=== PATIENT | female | born 1995 | race Caucasian/White ===

== ENCOUNTER 2022-12-28 22:17 | Emergency (ER) | payer MEDICAID, OTHER ==
[~2022-12-28] VITALS: Ht 160 cm; Wt 59.0 kg
[2022-12-28 22:27] VITALS: O2SAT 98
[2022-12-28] MEDS ORDERED: ONDANSETRON HCL 4MG/2ML INJ IV STA (22:55)
[2022-12-28] MEDS ORDERED: MORPHINE SULFATE 4 MG/ML CPJ (NOT FOR IM USE) IV STA (22:55)
[2022-12-28] MEDS ORDERED: BACITRACIN ZINC OINT UDPKT TOP ONE (23:00)
[2022-12-28] MEDS ORDERED: SODIUM CHLORIDE 0.9% 1,000 ML IV ONE (23:00)
[2022-12-28] MEDS ORDERED: CEFAZOLIN 1000MG PREMIX 50 ML IV ONE (23:00)
[2022-12-28] MEDS ORDERED: TETANUS, DIPHTHERIA, PERTUSSIS VAC/PF 0.5ML (>10YR OLD) IM ONE (23:00)
[2022-12-28 23:33] LABS: ALANINE AMINOTRANSFERASE 35 IU/L (10-49); ALBUMIN 4.2 g/dL (3.2-4.8); ASPARTATE AMINOTRANSFERASE 41 IU/L (<34); BILIRUBIN TOTAL 0.4 mg/dL (0.1-1.0); CALCIUM 9.1 mg/dL (8.7-10.4); CARBON DIOXIDE 26 mEq/L (21-32); CHLORIDE 106 mEq/L (98-107); CREATININE 0.8 mg/dL (0.6-1.0); GLUCOSE 99 mg/dL (70-105); POTASSIUM 3.5 mEq/L (3.5-5.1); PROTEIN TOTAL 6.7 g/dL (6.0-8.3); SODIUM 139 mEq/L (136-145); UREA NITROGEN BLOOD 9 mg/dL (9-23)
[2022-12-29 00:20] LABS: HCG SCREEN NEGATIVE
[2022-12-29] MEDS ORDERED: MORPHINE SULFATE 4 MG/ML CPJ (NOT FOR IM USE) IV ONE (00:30)
[2022-12-29] MEDS ORDERED: HYDR-4001 MT (01:23)
[2022-12-29] MEDS ORDERED: NEOM28.37 TP (01:23)
[2022-12-29 02:30] VITALS: BP 121/64; PULSE 88; RESP 14; TEMP 98.5
== END 2022-12-29 03:11 | disposition home or self-care (01) ==
LOC: ER 22:49
DX: S93.402A Sprain of unspecified ligament of left ankle, initial encounter (principal); S09.90XA Unspecified injury of head, initial encounter; X58.XXXA Exposure to other specified factors, initial encounter; Y93.89 Activity, other specified; Y92.89 Other specified places as the place of occurrence of the external cause; Y99.8 Other external cause status
CPT/HCPCS: 80053; 84703; 36415 ×2; 71045; 73610; 73630; 70450; 72125; 90715; 90471; 96361; 96365; 96375; 99291; 86850; 86900; 86901; 96376; J0690; J2405; J2270 ×2; J7030; Z7610 ×3

== ENCOUNTER 2023-01-05 21:06 | Emergency (ER) | payer OTHER ==
[~2023-01-05] VITALS: Ht 160 cm; Wt 73.0 kg
[~2023-01-05 21:06] MED LIST: HYDR-4001 MT; NEOM28.37 TP
[2023-01-05 21:19] VITALS: BP 107/41; O2SAT 97
[2023-01-06 01:20] VITALS: PULSE 67; RESP 16; TEMP 98.5
== END 2023-01-06 01:20 | disposition home or self-care (01) ==
LOC: ER 21:06
DX: S80.12XA Contusion of left lower leg, initial encounter (principal); X58.XXXA Exposure to other specified factors, initial encounter; Y93.89 Activity, other specified; Y92.89 Other specified places as the place of occurrence of the external cause; Y99.8 Other external cause status
CPT/HCPCS: 29515; 99283